=== PATIENT | male | born 1995 | race Caucasian/White ===

== ENCOUNTER → 2017-04-16 12:50 | Outpatient (CLI) | payer BC ==
[2017-04-16 13:13] LABS: BASOPHILS 0.2 % (0-2); HEMATOCRIT 47.9 % (42.0-54.0); HEMOGLOBIN 17.2 g/dL (13.5-17.5); IMMATURE GRANULOCYTES 0.1 % (0-5); LYMPHOCYTES 24.5 % (15-50); MCH 31.2 pg (26.0-34.0); MCHC 35.9 g/dL (31.0-37.0); MCV 86.8 fL (80.0-100.0); MEAN PLATELET VOLUME 9.9 fL (7.4-10.4); MONOCYTES 5.6 % (2-11); NEUTROPHILS 68.6 % (40-80); PLATELET COUNT 236 10x3/uL (130-400); RBC 5.52 10x6/uL (4.20-6.10); RDW 12.2 % (11.5-14.5); WBC 9.8 10x3/uL (4.8-10.8)
[2017-04-16 13:30] LABS: ALBUMIN 4.3 g/dL (3.4-5.0); ANION GAP 13.3 mmol/L (8-16); BILIRUBIN - TOTAL 0.73 mg/dL (0.2-1.3); CARBON DIOXIDE 27.1 mmol/L (21.0-32.0); CHOL - HDL RATIO 5.1 ratio (2.3-4.9); CREATININE - SERUM 1.3 mg/dL (0.6-1.3); LDL-HDL RATIO 3.6 ratio (1.5-3.5); POTASSIUM - SERUM 4.4 mmol/L (3.5-5.1); PROTEIN - SERUM 7.6 g/dL (6.4-8.2); T4 THYROXIN - FREE 1.15 ng/dL (0.76-1.46); T4 THYROXINE 8.9 ug/dL (4.7-13.3); THYROID STIMULATING HORMONE 1.02 uIU/mL (0.36-3.74)
== END | disposition home or self-care (01) ==
LOC: D.LAB 12:50
PROVIDERS: Psychiatry & Neurology Psychiatry
DX: E78.5 Hyperlipidemia, unspecified (principal); D75.1 Secondary polycythemia